=== PATIENT | female | born 1980 | race Caucasian/White ===

== ENCOUNTER → 2018-05-21 | Outpatient (REF) | payer OTHER ==
[2018-05-21 19:51] LABS: HEMATOCRIT 42.5 % (36.0-47.0)
[2018-05-21 20:05] LABS: FERRITIN 15 NG/ML (8-252); IRON (FE) 119 UG/DL (50-170); TOTAL IRON BINDING CAPACITY 367 UG/DL (250-450)
[2018-05-21 20:06] LABS: REASON FOR REVIEW RBC MORPHOLOGY; SLIDE REVIEW Report; SOURCE PERIPHERAL SMEAR
[2018-05-21 20:11] LABS: FOLATE > 24.0 NG/ML
[2018-05-21 20:29] LABS: PERCENT SATURATION 32.4 % (13.2-45.0)
[2018-05-23 08:10] LABS: HAPTOGLOBIN 108 mg/dL (34-200)
[2018-05-24 13:10] LABS: PRETREATED FOLATE FOR RBCFOL 15.4 NG/ML; RBC FOLATE 760.9 NG/ML (280-791)
== END ==
LOC: M LAB REF 17:00
DX: D75.89 Other specified diseases of blood and blood-forming organs (principal)
CPT/HCPCS: 82746

== ENCOUNTER → 2018-05-30 | Outpatient (REF) | payer OTHER ==
[2018-05-30 14:21] LABS: RETIC HEMOGLOBIN EQUIVALENT 37.9 pg (24-36); RETICULOCYTE # 52.1 10^9/L (17-77); RETICULOCYTE % 1.3 % (0.5-1.5)
== END ==
LOC: M LAB REF 13:55
DX: D75.89 Other specified diseases of blood and blood-forming organs (principal)

== ENCOUNTER → 2025-08-03 | Outpatient (REF) | payer OTHER ==
[~2025-08-03] MED LIST: LABE100T91 PO; PHEN37.511 PO
== END ==
LOC: M LAB REF 10:35
PROVIDERS: ATTEND Plastic Surgery Surgery of the Hand
DX: D22.39 Melanocytic nevi of other parts of face (principal)